=== PATIENT | female | born 1980 | race Caucasian/White ===

== ENCOUNTER → 2019-03-25 | Outpatient (CLI) | payer BC ==
[~2019-03-25] MED LIST: AZIT-1 PO; BLOO-1326 MC; BLOO-960 MC; BUPR-472 PO; BUPR-474 PO; BUTA1CAP6 PO; BUTA1TAB PO; CALC600T63 PO; CHOL500025 PO; CITA-145 PO; COCO1000 PO; CYAN1TAB68 PO; CYCL10TA29 PO; DEX1 PO; DOXY-179 PO; DULA0.75 INJ; DULA1.5P SC; EMPA10TA PO; EMPA25TA PO; EXEN2PEN SUBQ; FEN200PT PO; FLUC150T40 PO; FLUT16SP19 NS; FLUT9.9S; FURO-45 PO; GLIM4TAB50 PO; GLUC-125 PO; HYDR-4225 PO; IBUP800T37 PO; LACT PO; LANC-1149 MC; LEVO-3 PO; LEVO75TA68 PO; LISI-355 PO; LISI20TA29 PO; LISI5TAB25 PO; LOVAZA1PT PO; MAGN400T10 PO; METF-450 PO; METF-451 PO; METF-452 PO; MONT10TA PO; MULT-865 PO; OLO2ODPT OU; OLOP2.5D4 OU; OMEG-24 PO; ONDA4TAB PO; OXYC-865 PO; PNEI IM; POTA10CA40 PO; ROSU20TA5 PO; ROSU40TA2 PO; SALM1CAP3 PO; SIMV-49 PO; SITA100T PO; SULF-198 PO; UBID100C48 PO
--- NOTE | 2019-03-25 12:07 | EKG ---
FACILITY: [facility] - [place] PATIENT NAME: CALLIE BOYD : [id number] MR: [id number] V: [id number] EXAM DATE: ORDERING PHYSICIAN: SEUN VERNON TECHNOLOGIST: MICHA Test Reason : PRE-OP Blood Pressure : / mmHG Vent. Rate : 079 BPM Atrial Rate : 079 BPM P-R Int : 150 ms QRS Dur : 106 ms QT Int : 412 ms P-R-T Axes : 044 059 035 degrees QTc Int : 472 ms Normal sinus rhythm Low voltage QRS Cannot rule out Anterior infarct , age undetermined Abnormal ECG When compared with ECG of 26-MAR-2016 08:21, No significant change was found Referred By: JANEEN Confirmed By:
== END ==
LOC: LAB 11:37
PROVIDERS: ATTEND Emergency Medicine
DX: Z01.818 Encounter for other preprocedural examination (principal); E11.9 Type 2 diabetes mellitus without complications; Z82.49 Family history of ischemic heart disease and other diseases of the circulatory system; R94.31 Abnormal electrocardiogram [ECG] [EKG]
CPT/HCPCS: 36415; 82040; 82247; 82310; 82374; 82435; 82565; 82947; 84075; 84132; 84155; 84295; 84450; 84460; 84520; 93005

== ENCOUNTER 2019-04-05 01:15 | Day surgery (SDC) | payer BC ==
[~2019-04-05] VITALS: Ht 177.8 cm; Wt 131.5 kg
[~2019-04-05 01:15] MED LIST changes: +CYAN500T54 PO; +MAGN500C11 PO
[2019-04-05] MEDS ORDERED: LEVOFLOXACIN/D5W*500 MG/100 ML 100 ML IVPB ONE (05:20)
[2019-04-05] MEDS ORDERED: metroNIDAZOLE* 500MG/100ML BAG 100 ML IVPB ONE (05:20)
[2019-04-05] MEDS ORDERED: fentaNYL CITR 100 MCG/2 ML AMP ONE ×2 (07:30→09:13)
[2019-04-05] MEDS ORDERED: LIDOCAINE 2% IV 100 MG/5ML SYR ONE (07:31)
[2019-04-05] MEDS ORDERED: PROPOFOL EMUL(*) 10MG/ML 20 ML 20 ML ONE (07:31)
[2019-04-05] MEDS ORDERED: FAMOTIDINE 20 MG TAB PO ONE (08:05)
[2019-04-05] MEDS ORDERED: LIDOCAINE/SOD BICARB 8.4% SYR ID ONE (08:05)
[2019-04-05] MEDS ORDERED: MIDAZOLAM 2 MG/2 ML VIAL IVP PRN (08:05)
[2019-04-05] MEDS ORDERED: NORMOSOL R SOLN(*) 1000 ML BAG 1,000 ML IV PRN (08:05)
[2019-04-05 08:08] VITALS: BP 104/55
[2019-04-05] MEDS ORDERED: HYDROGEN PEROXID 3% 473 ML BTL TP ONE (08:52)
[2019-04-05] MEDS ORDERED: LIDOCAINE 2% 200MG/10ML UROJET ONE (08:52)
[2019-04-05] MEDS ORDERED: BUPIVACAINE/EPI 0.5% 50ML VIAL INFIL ONE (08:52)
[2019-04-05] MEDS ORDERED: DEXAMETHASONE SOD 4 MG/ML VIAL ONE (08:56)
[2019-04-05] MEDS ORDERED: ONDANSETRON 4 MG/2 ML VIAL ONE (08:57)
[2019-04-05] MEDS ORDERED: KETOROLAC 30 MG/ML VIAL ONE (08:57)
[2019-04-05] MEDS ORDERED: LIDO15SO2 TOP (10:31)
[2019-04-05] MEDS ORDERED: HYDR-654 PO (10:31)
--- NOTE | 2019-04-05 10:34 | Short(Outpt) Discharge Summary ---
Discharge Summary Reason for Hosp/Final Diag: (1) F[facility] Hospital Course & Plan: pt presented for eua and seton placement x2. she tolerated the procedure well and will be discharged home when criteria met. Departure Discharge to: Home Discharge Instructions Home Meds Active Scripts Lidocaine HCl VISCOUS 2% (Lidocaine Viscous) 2 % Solution, 1 LUIS TOP Q4H PRN for PAIN, #1 TUBE 1 Refill Prov:FRED CENTENO 04/05/19 Hydrocodone Bit/Acetaminophen (NORCO 7.5-325 TABLET) 1 Each Tablet, 1 EACH PO Q4H PRN for PAIN, #30 TAB Prov:FRED CENTENO P 04/05/19 Levothyroxine Sodium (LEVOTHYROXINE SODIUM) 100 Mcg Tablet, 100 MCG PO QDAY, #90 TAB 3 Refills Prov:SEUN VERNON MD 03/14/19 Fluticasone Prop 50 Mcg Ns (FLONASE 50 MCG NS) 16 Gm Thurman.susp, 2 SPRAYS NS QDAY, #3 BOT 3 Refills Prov:SEUN VERNON MD 03/11/19 Cyclobenzaprine Hcl (CYCLOBENZAPRINE HCL) 10 Mg Tablet, 10 MG PO TID, #30 TAB 6 Refills Prov:SEUN VERNON MD 02/23/19 Metformin Hcl (METFORMIN HCL) 850 Mg Tablet, 1 TAB PO TID, #270 TAB 3 Refills Prov:SEUN VERNON MD 02/18/19 Fenofibrate,Micronized (FENOFIBRATE) 200 Mg Cap, 200 MG PO DAILY, #90 CAP 3 Refills Prov:SEUN VERNON MD 02/10/19 Glimepiride (GLIMEPIRIDE) 4 Mg Tablet, 1 TAB PO QDAY for 30 Days, #90 TAB 3 Refills Prov:SEUN VERNON MD 02/02/19 Empagliflozin (Jardiance) 25 Mg Tablet, 1 TAB PO DAILY, #30 TAB 11 Refills Prov:SEUN VERNON MD 01/31/19 Butalb/Acetaminophen/Caffeine (ESGIC 50-325-40 MG TABLET) 1 Each Tablet, 2 TAB PO Q6H PRN for prn, #60 TAB 5 Refills not to exceed 6 per day Prov:SEUN VERNON MD 12/01/18 Lisinopril/Hydrochlorothiazide (LISINOPRIL-HCTZ 20-25 MG TAB) 1 Each Tablet, 1 EACH PO DAILY, #90 TAB 3 Refills Prov:SEUN VERNON MD 11/05/18 Lancets (ONE TOUCH LANCETS) 1 Each Each, EACH MC DAILY, #1 Prov:SEUN VERNON MD 10/06/18 Blood-Glucose Control, Normal (ONE TOUCH VERIO) 1 Each Each, STRIP MC DAILY, #1 Prov:SEUN VERNON MD 10/06/18 Blood-Glucose Meter (BLOOD GLUCOSE METER) 1 Each Each, EACH MC DAILY, #1 Prov:SEUN VERNON MD 10/05/18 Bupropion Hcl (WELLBUTRIN XL) 300 Mg Tab.er.24h, 300 MG PO QDAY, #90 TAB 3 Refills Prov:SEUN VERNON MD 07/08/18 Dulaglutide (Trulicity) 1.5 Mg/0.5 Ml Pen.injctr, 1.5 MG SC Q7DAY, #14 MISC 3 Refills Prov:SEUN VERNON MD 07/08/18 Rosuvastatin Calcium (Rosuvastatin Calcium) 40 Mg Tablet, 1 TAB PO DAILY, #90 TAB 3 Refills Prov:SEUN VERNON MD 07/02/18 Montelukast Sodium (SINGULAIR) 10 Mg Tablet, 1 TAB PO QDAY, #90 TAB 4 Refills Prov:SEUN VERNON MD 03/12/18 Reported Medications Magnesium Oxide (Magnesium Oxide) 500 Mg Capsule, 1 TAB PO QDAY 04/01/19 Cyanocobalamin (Vitamin B-12) (B-12) 500 Mcg Tablet, 500 MCG PO 04/01/19 Calcium Carbonate (CALCIUM) 600 Mg Tablet, 2 TAB PO DAILY 05/30/16 Gluc/Homer-Msm#2/C/D3/Abraham/Born (EGYNTLWTQA-ERBMLOFCSUS-AWU TAB) 1 Each Tablet, 1 TAB PO DAILY 05/30/16 Multivitamin (DAILY MULTIPLE VITAMIN) 1 Each Tablet, 1 TAB PO DAILY 05/30/16 Lactobacillus Acidophilus (ACIDOPHILUS CAPLET) 1 Each Tab, 2 TAB PO DAILY, TAB 05/30/16 Cholecalciferol (Vitamin D3) (VITAMIN D3) 5,000 Unit Tablet, 1 TAB PO DAILY 05/30/16 Frontier-3 Fatty Acids/Fish Oil (FISH OIL 1,200 MG SOFTGEL) 1 Each Capsule, 4 CAP PO DAILY, CAPSULE 05/30/16 Ubidecarenone (COQ-10) 100 Mg Capsule, 200 MG PO DAILY, CAPSULE 05/30/16 Discontinued Reported Medications Magnesium Oxide (Magnesium) 400 Mg Tablet, 1 TAB PO DAILY 05/30/16 Dawson Oil/Frontier-3 Fatty Acids (SALMON OIL 1,000 MG SOFTGEL) 1 Each Capsule, 2 EACH PO DAILY, CAPSULE 05/30/16 Cyanocobalamin/Folic Acid (VITAMIN I47-YHADR ACID TABLET) 1 Each Tablet, 6000 MCG PO DAILY 05/30/16 Discontinued Scripts Olopatadine HCl (Pazeo) 2.5 Ml Drops, 1 DROP OU QDAY for 30 Days, #1 BOT 3 Refills Prov:SHAYAN GOODMAN JR, MD 03/25/19 Olopatadine (PATADAY) 0.05 Ml Soln, 1 DROP OU DAILY for 30 Days, #1 BOT 2 Refills Prov:SHAYAN GOODMAN JR, MD 03/15/19 Fluconazole (DIFLUCAN) 150 Mg Tablet, 1 TAB PO ONCE, #1 TAB 0 Refills Prov:SEUN VERNON MD 03/15/19 Sulfamethoxazole/Trimet 800-160 Mg Tab (BACTRIM DS TABLET) 1 Each Tablet, 1 TAB PO BID, #20 TAB 0 Refills Prov:SEUN VERNON MD 03/15/19 Frontier 3 Polyunsat Fatty Acids (LOVAZA) 1 Gm Cap, 2 GM PO BID, #120 CAP 2 Refills Prov:SEUN VERNON MD 05/22/17 Diet: Regular Activity: As Tolerated Special Instructions: sitz baths for 15 minutes 3x/day and prn. keep stool soft - fiber, stool softener, and prn laxative. f/u dr. juanjose centeno 2 wks ([phone]). FRED CENTENO Apr 05, 2019 10:34
--- NOTE | 2019-04-05 10:41 | Post Operative Progress Note ---
Post Operative Progress Note Date: Apr 05, 2019 Time: 10:31 Surgeon: dr. juanjose centeno #[id number] District Loss Prevention Manager: none Anesthesia: gen, local dr. whittaker Pre-Op Diagnosis: perianal abscess, poss fistula Post-Op Diagnosis: perianal fistula x2 Procedure(s): eua seton placement x2 Complications: none Estimated Blood Loss: 75 ml Date OP Note Dictated: Apr 05, 2019 Time OP Note Dictated: 10:33 FRED CENTENO Apr 05, 2019 10:41
[2019-04-05 11:00] VITALS: BP 115/75
[2019-04-05 11:30] VITALS: BP 110/63
[2019-04-05 11:51] VITALS: BP 107/85
[2019-04-05 11:55] VITALS: BP 97/55
--- NOTE | 2019-04-05 12:13 | NUR ---
Pt requiring 1l oxygen at rest and with activity to maintain oxygen saturation above 90%. [place], pt states she has required oxygen in the past while taking narcotics. Dr. Darnell notified, ok to sent pt home with home oxygen. Pt lung sounds clear, oxygen does improve with deep breaths on room air, however does not maintain at rest or when not purposefully breathing.
--- NOTE | 2019-04-05 12:15 | OPERATIVE REPORT 1 ---
EVENT DATE: April 05, 2019 SURGEON: Carl Echeverria MD ANESTHESIOLOGIST: Ventura Darnell MD ANESTHESIA: General and local. FRAMING MILL SUPERVISOR: None. PREOPERATIVE DIAGNOSIS Perianal abscess, possible fistula. POSTOPERATIVE DIAGNOSIS Perianal fistula x2. PROCEDURES PERFORMED * Exam under anesthesia. * Seton placement x2. FLUIDS IV crystalloid. ESTIMATED BLOOD LOSS 75 mL. SPECIMENS None. COMPLICATIONS None. 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 The abscess continually returns to the same spot. She has been treated for it multiple times. It recently opened and is slowly drainage. Risks and benefits of the procedure were explained and consent was signed. DESCRIPTION OF PROCEDURE The patient was taken to the operating room and placed in the supine position. General anesthesia was administered per the Anesthesia team. Patient was placed in stirrups. Her buttocks were taped for exposure. She was prepped and draped in sterile fashion. Exam under anesthesia was performed. This showed an external opening anteriorly and also external opening on the right buttocks several centimeters from the verge. The patient had medium sized internal and external hemorrhoids. She had an area anteriorly in the anal canal that felt somewhat rough, consistent with internal opening. Fistula probe was passed from the anterior external opening easily to the internal opening. Local analgesia was injected into the perianal skin and the skin and subcutaneous tissue was divided, leaving the sphincter intact. The probe was then passed from the external opening on the right through the same internal opening anteriorly. The fatty tissue and skin was divided over the probe after injecting local analgesia. External openings were debrided. Silk suture was tied to the probes and these were pulled through the wounds. Vessel loops were then tied to the silk stitch and this was pulled through the wounds. The vessel loops were secured snugly using silk stitches. This will function as a cutting seton. The wound onto the right buttock was quite large and this was loosely approximated with 2-0 Prolene stitches x2, still leaving the ability for the wound to drain. Local analgesia was injected. Appropriate dressings were applied. Patient tolerated the procedure well and there were no complications. MTDD
--- NOTE | 2019-04-05 12:32 | NUR ---
pt selected [facility] for home oxygen supplies. [facility] notified, will deliver portable oxygen as soon as possible.
[2019-04-05] MEDS ORDERED: APAP/HYDROCODONE 325/7.5 TAB PO ONE (12:35)
--- NOTE | 2019-04-05 13:30 | NUR ---
[facility] delivered home oxygen to room. discharge instructions completed to pt and her parent at bedside, questions answered.
== END 2019-04-05 11:00 | disposition home or self-care (01) ==
LOC: OR 01:15
PROVIDERS: ATTEND Surgery
DX: K61.0 Anal abscess (principal); K60.3 Anal fistula; E11.9 Type 2 diabetes mellitus without complications
CPT/HCPCS: 36416; 46020; 82948; J1100; J1885; J1956; J2001; J2405; J2704; J3010; J3490